=== PATIENT | female | born 1960 | race Caucasian/White ===

== ENCOUNTER 2017-04-21 12:13 | Emergency (ER) | payer OTHER ==
[~2017-04-21] VITALS: Ht 149.9 cm; Wt 76.0 kg
[~2017-04-21 12:13] MED LIST: ACEBUTOLOL200 MG OR; ALPRAZOLAM0.5 MG PO; AMOXICILLIN500 MG OR; AMOXICILLIN875 MG OR; ASPIRIN325 MG PO; BACTRIM DS1 TAB OR; COMBIVENT IN; COMBIVENT RESPIMAT IN; DECONG; DOXYCYCL HYC100 MG OR; FLEXERIL OR; IBUPROFEN400 MG OR; LORTAB 7.5 OR; MEDDOSEPAK OR; NAPROSYN500 MG OR; NEO/POLY/HC1 % OT; PERCOCET 5/325M1 TAB OR; PRAVASTATIN SOD20 MG PO; PREDNISONE20 MG OR; PREVACID30 M1 OR; PREVACID30 M1 PO; PRILOSEC20 MG PO; PRILOSEC20 MG/CAP PO; PROMETHAZINE25 MG PO; REGLAN10 MG OR; RIFADIN300 MG OR; ROBITUSSIN AC OR; SEPTRA DS1 TAB OR; TENORMIN25 MG PO; TORADOL OR; TORADOL PO; TRIMOX500 MG PO; TYLENOL500 MG OR; ULTRAM50 M1 PO; ULTRAM50 MG OR; ULTRAM50 MG PO; ZITHROMAX250 MG OR; ZITHROMAX500 MG OR; ZPAK OR
[2017-04-21] MEDS ORDERED: ADVAIR DISK1 IN (12:42)
[2017-04-21] MEDS ORDERED: PROAIR HFA108 MCG/AC IN (12:43)
[2017-04-21] MEDS ORDERED: BACTRIM DS1 TAB PO (13:03)
[2017-04-21 13:21] VITALS: BP 120/70
== END 2017-04-21 13:21 | disposition home or self-care (01) | DRG 556 ==
LOC: ED 12:13
PROC: 2W3UXYZ Immobilization of Right Toe using Other Device (ICD-10-PCS; principal; 2017-04-21)
DX: M79.674 Pain in right toe(s) (principal); F41.9 Anxiety disorder, unspecified

== ENCOUNTER 2017-05-22 14:51 | Emergency (ER) | payer OTHER ==
[~2017-05-22] VITALS: Ht 149.9 cm; Wt 71.8 kg
[~2017-05-22 14:51] MED LIST changes: +ADVAIR DISK1 IN; +BACTRIM DS1 TAB PO; +PROAIR HFA108 MCG/AC IN
[2017-05-22] MEDS ORDERED: IBUPROFEN600 MG PO (15:31)
[2017-05-22 16:05] VITALS: BP 125/63
== END 2017-05-22 16:05 | disposition home or self-care (01) | DRG 556 ==
LOC: ED 14:51
DX: M25.561 Pain in right knee (principal); M25.461 Effusion, right knee; R26.2 Difficulty in walking, not elsewhere classified

== ENCOUNTER 2017-06-20 16:48 | Emergency (ER) | payer OTHER ==
[~2017-06-20] VITALS: Ht 149.9 cm; Wt 72.2 kg
[~2017-06-20 16:48] MED LIST changes: +IBUPROFEN600 MG PO
[2017-06-20] MEDS ORDERED: XANAX0.5 MG PO (16:58)
[2017-06-20] MEDS ORDERED: MACROBID100 MG PO (16:59)
[2017-06-20 18:21] LABS: HEMATOCRIT 45.8 % (37.0-47.0); HEMOGLOBIN 15.1 g/dl (12.0-16.0); IMMATURE GRANULOCYTES 0.5 % (0.0-1.0); MEAN CELL VOLUME 93.9 fL CALC (80.0-100.0); MEAN CORPUSCULAR HGB 30.9 pG CALC (26.0-32.0); NEUT# 4.89 thou/uL (2.00-7.15); RED BLOOD COUNT 4.88 mill/uL (4.20-5.60)
[2017-06-20 18:32] LABS: ALKALINE PHOSPHATASE 81 u/l (38-126); ANION GAP 15 (6-22 (CALC)); BILIRUBIN, TOTAL 0.4 mg/dL (0.0-1.4); BUN 9 mg/dL (7-17); BUN/CREATININE RATIO 15 (12-20 (CALC)); CALCIUM 9.5 mg/dL (8.4-10.2); CARBON DIOXIDE 27 mmol/l (22-30); CHLORIDE 102 mmol/l (95-108); CREATININE 0.6 mg/dL (0.5-1.0); GFR > 60 ML/MIN (>=60 (CALC)); GFR FOR AFR.AMER. > 60 ML/MIN (>=60 (CALC)); GLUCOSE 127 mg/dL (65-105); POTASSIUM 4.2 mmol/l (3.5-5.1); SGOT/AST 22 u/l (14-36); SGPT/ALT 34 u/l (9-52); SODIUM 140 mmol/l (137-146); TOTAL PROTEIN 6.4 g/dL (6.3-8.2)
[2017-06-20 18:44] LABS: MYOGLOBIN 30 ng/mL (0 - 62)
[2017-06-20 19:07] LABS: URINE BILIRUBIN - DIPSTICK NEGATIVE (NEGATIVE); URINE BLOOD DIPSTICK NEGATIVE (NEGATIVE); URINE CLARITY CLEAR; URINE COLOR YELLOW; URINE GLUCOSE - DIPSTICK NEGATIVE (NEGATIVE); URINE KETONE NEGATIVE (NEGATIVE); URINE LEUK ESTERASE NEGATIVE (NEGATIVE); URINE NITRITE - DIPSTICK NEGATIVE (Negative); URINE PH 5.5 (4.5-8.0); URINE PROTEIN - DIPSTICK NEGATIVE (NEG-TRACE); URINE SPECIFIC GRAVITY 1.025; URINE UROBILINOGEN - DIPSTICK 0.2 E.U./dL (0.2)
[2017-06-20 19:55] VITALS: BP 104/59
== END 2017-06-20 19:55 | disposition home or self-care (01) | DRG 310 ==
LOC: ED 16:48
PROVIDERS: Emergency Medicine
DX: R00.2 Palpitations (principal); F41.8 Other specified anxiety disorders; R00.0 Tachycardia, unspecified; F17.210 Nicotine dependence, cigarettes, uncomplicated

== ENCOUNTER 2017-10-06 12:55 | Emergency (ER) | payer OTHER ==
[~2017-10-06] VITALS: Ht 149.9 cm; Wt 72.0 kg
[~2017-10-06 12:55] MED LIST changes: +MACROBID100 MG PO; +XANAX0.5 MG PO
[2017-10-06] MEDS ORDERED: DUONEB IN (13:17)
[2017-10-06] MEDS ORDERED: ZITHROMAX250 MG PO (13:27)
[2017-10-06] MEDS ORDERED: PREDNISONE50 MG PO (13:27)
[2017-10-06 14:02] VITALS: BP 95/63
== END 2017-10-06 14:10 | disposition home or self-care (01) | DRG 202 ==
LOC: ED 12:55
DX: J20.9 Acute bronchitis, unspecified (principal); J44.1 Chronic obstructive pulmonary disease with (acute) exacerbation; J44.0 Chronic obstructive pulmonary disease with (acute) lower respiratory infection; F17.210 Nicotine dependence, cigarettes, uncomplicated; R05 Cough; R06.02 Shortness of breath; R00.0 Tachycardia, unspecified

== ENCOUNTER 2017-10-21 13:40 | Inpatient (IN) | payer OTHER ==
[2017-10-21] VITALS (9 sets, daily range): BP systolic 73–133; BP diastolic 45–75
[~2017-10-21] VITALS: Ht 149.9 cm; Wt 76.0 kg
[~2017-10-21 13:40] MED LIST changes: +DUONEB IN; +PREDNISONE50 MG PO; +ZITHROMAX250 MG PO
[2017-10-21 15:15] LABS: HEMATOCRIT 45.2 % (37.0-47.0); HEMOGLOBIN 14.4 g/dl (12.0-16.0); IMMATURE GRANULOCYTES 0.7 % (0.0-1.0); MEAN CELL VOLUME 95.2 fL CALC (80.0-100.0); MEAN CORPUSCULAR HGB 30.3 pG CALC (26.0-32.0); MEAN CORPUSCULAR HGB CONC 31.9 g/L CALC (32.0-36.0); NEUT# 7.27 thou/uL (2.00-7.15); RED BLOOD COUNT 4.75 mill/uL (4.20-5.60); RED CELL DISTRI WIDTH 13.2 % (11.5-15.5)
[2017-10-21 15:16] LABS: URINE BILIRUBIN - DIPSTICK NEGATIVE (NEGATIVE); URINE BLOOD DIPSTICK NEGATIVE (NEGATIVE); URINE COLOR YELLOW; URINE GLUCOSE - DIPSTICK NEGATIVE (NEGATIVE); URINE KETONE NEGATIVE (NEGATIVE); URINE LEUK ESTERASE NEGATIVE (NEGATIVE); URINE NITRITE - DIPSTICK NEGATIVE (Negative); URINE PROTEIN - DIPSTICK NEGATIVE (NEG-TRACE); URINE UROBILINOGEN - DIPSTICK 0.2 E.U./dL (0.2)
[2017-10-21 15:17] LABS: URINE CLARITY CLEAR
[2017-10-21 15:34] LABS: ANION GAP 13 (6-22 (CALC)); BUN 15 mg/dL (7-17); BUN/CREATININE RATIO 23 (12-20 (CALC)); CARBON DIOXIDE 28 mmol/l (22-30); CHLORIDE 105 mmol/l (95-108); CREATININE 0.6 mg/dL (0.5-1.0); GFR > 60 ML/MIN (>=60 (CALC)); GFR FOR AFR.AMER. > 60 ML/MIN (>=60 (CALC)); POTASSIUM 4.3 mmol/l (3.5-5.1); SODIUM 142 mmol/l (137-146)
[2017-10-22] VITALS (12 sets, daily range): BP systolic 92–148; BP diastolic 44–95
[2017-10-22 05:13] LABS: HEMATOCRIT 44.1 % (37.0-47.0); MEAN CELL VOLUME 95.2 fL CALC (80.0-100.0); MEAN CORPUSCULAR HGB 30.2 pG CALC (26.0-32.0); MEAN CORPUSCULAR HGB CONC 31.7 g/L CALC (32.0-36.0); RED BLOOD COUNT 4.63 mill/uL (4.20-5.60); RED CELL DISTRI WIDTH 13.2 % (11.5-15.5)
[2017-10-22 05:25] LABS: ANION GAP 12 (6-22 (CALC)); BUN 13 mg/dL (7-17); BUN/CREATININE RATIO 20 (12-20 (CALC)); CALCULATED LDLCHOLESTEROL 141 mg/dL (62-129 (CALC)); CARBON DIOXIDE 28 mmol/l (22-30); CHLORIDE 108 mmol/l (95-108); CHOLESTEROL HDL RATIO 4.4 (<4.4 (CALC)); CREATININE 0.6 mg/dL (0.5-1.0); GFR > 60 ML/MIN (>=60 (CALC)); GFR FOR AFR.AMER. > 60 ML/MIN (>=60 (CALC)); HDL CHOLESTEROL 46 mg/dL (>=40); MAGNESIUM 1.9 mg/dL (1.6-2.3); POTASSIUM 4.6 mmol/l (3.5-5.1); SODIUM 144 mmol/l (137-146); TOTAL CHOLESTEROL 202 mg/dl (0-199); TOTAL TRIGLYCERIDES 76 mg/dl (30-149); VLDL CHOLESTROL 15 mg/dl (2-49 (CALC))
[2017-10-23] VITALS (9 sets, daily range): BP systolic 90–123; BP diastolic 50–73
== END 2017-10-23 16:10 | disposition short-term general hospital (02) | DRG 310 ==
LOC: ED 13:40 → ED-I 16:42 → ED 16:51 → MS2 16:52 → ICU 19:41 → MS2 19:41 → ICU 19:55
PROVIDERS: Family Medicine; ADMIT Internal Medicine; ATTEND Internal Medicine
DX: I47.2 Ventricular tachycardia (principal); M41.9 Scoliosis, unspecified; I49.3 Ventricular premature depolarization; F17.210 Nicotine dependence, cigarettes, uncomplicated; J44.9 Chronic obstructive pulmonary disease, unspecified; M47.819 Spondylosis without myelopathy or radiculopathy, site unspecified; E66.9 Obesity, unspecified; Z87.442 Personal history of urinary calculi; Z68.33 Body mass index [BMI] 33.0-33.9, adult

== ENCOUNTER 2017-10-25 23:24 | Emergency (ER) | payer OTHER ==
[~2017-10-25] VITALS: Ht 149.9 cm; Wt 75.0 kg
[2017-10-26 00:19] LABS: HEMATOCRIT 47.1 % (37.0-47.0); HEMOGLOBIN 15.5 g/dl (12.0-16.0); IMMATURE GRANULOCYTES 0.6 % (0.0-1.0); MEAN CELL VOLUME 93.1 fL CALC (80.0-100.0); MEAN CORPUSCULAR HGB 30.6 pG CALC (26.0-32.0); MEAN CORPUSCULAR HGB CONC 32.9 g/L CALC (32.0-36.0); NEUT# 3.6 thou/uL (2.00-7.15); RED BLOOD COUNT 5.06 mill/uL (4.20-5.60); RED CELL DISTRI WIDTH 12.7 % (11.5-15.5)
[2017-10-26 00:40] LABS: ACT PARTIAL THROMBO TIME 25.7 SECONDS (20.0-32.5); INTERNATIONAL NORMALIZED RATIO 0.9 RATIO (0.7-1.3); PROTHROMBIN TIME 10.5 SECONDS (9.0-12.5)
[2017-10-26 00:48] LABS: ALBUMIN 3.9 g/dL (3.2-5.0); ALKALINE PHOSPHATASE 90 u/l (38-126); ANION GAP 14 (6-22 (CALC)); BILIRUBIN, TOTAL 0.4 mg/dL (0.0-1.4); BUN 11 mg/dL (7-17); BUN/CREATININE RATIO 17 (12-20 (CALC)); CARBON DIOXIDE 24 mmol/l (22-30); CHLORIDE 105 mmol/l (95-108); CREATININE 0.6 mg/dL (0.5-1.0); GFR > 60 ML/MIN (>=60 (CALC)); GFR FOR AFR.AMER. > 60 ML/MIN (>=60 (CALC)); POTASSIUM 3.8 mmol/l (3.5-5.1); SGOT/AST 34 u/l (14-36); SGPT/ALT 27 u/l (9-52); SODIUM 140 mmol/l (137-146); TOTAL PROTEIN 6.9 g/dL (6.3-8.2)
[2017-10-26 00:57] LABS: MYOGLOBIN 39 ng/mL (0 - 62)
[2017-10-26] MEDS ORDERED: METOPROLOL SUCC25 MG PO (01:22)
[2017-10-26 01:25] LABS: URINE BILIRUBIN - DIPSTICK NEGATIVE (NEGATIVE); URINE BLOOD DIPSTICK NEGATIVE (NEGATIVE); URINE CLARITY CLEAR; URINE COLOR YELLOW; URINE GLUCOSE - DIPSTICK NEGATIVE (NEGATIVE); URINE KETONE NEGATIVE (NEGATIVE); URINE LEUK ESTERASE NEGATIVE (NEGATIVE); URINE NITRITE - DIPSTICK NEGATIVE (Negative); URINE PROTEIN - DIPSTICK NEGATIVE (NEG-TRACE); URINE SPECIFIC GRAVITY <=1.005; URINE UROBILINOGEN - DIPSTICK 0.2 E.U./dL (0.2)
[2017-10-26 03:13] VITALS: BP 112/65
== END 2017-10-26 03:12 | disposition short-term general hospital (02) | DRG 310 ==
LOC: ED 23:24
PROVIDERS: Emergency Medicine
DX: I47.2 Ventricular tachycardia (principal); J98.4 Other disorders of lung; I51.9 Heart disease, unspecified; N28.9 Disorder of kidney and ureter, unspecified; F17.210 Nicotine dependence, cigarettes, uncomplicated
CPT/HCPCS: J0282

== ENCOUNTER 2017-11-14 12:17 | Observation (INO) | payer OTHER ==
[~2017-11-14] VITALS: Ht 149.9 cm; Wt 77.6 kg
[~2017-11-14 12:17] MED LIST changes: +METOPROLOL SUCC25 MG PO
--- NOTE | 2017-11-14 12:19 | NUR ---
PT REFUSED WHEELCHAIR AND AMBULATED TO ROOM WITH A STEADY GAIT.
[2017-11-14 13:10] LABS: HEMATOCRIT 44.4 % (37.0-47.0); HEMOGLOBIN 14.4 g/dl (12.0-16.0); IMMATURE GRANULOCYTES 1.9 % (0.0-1.0); MEAN CELL VOLUME 93.1 fL CALC (80.0-100.0); MEAN CORPUSCULAR HGB 30.2 pG CALC (26.0-32.0); MEAN CORPUSCULAR HGB CONC 32.4 g/L CALC (32.0-36.0); NEUT# 5.66 thou/uL (2.00-7.15); RED BLOOD COUNT 4.77 mill/uL (4.20-5.60); RED CELL DISTRI WIDTH 12.7 % (11.5-15.5)
[2017-11-14 13:23] LABS: ANION GAP 18 (6-22 (CALC)); BUN 9 mg/dL (7-17); BUN/CREATININE RATIO 13 (12-20 (CALC)); CARBON DIOXIDE 26 mmol/l (22-30); CHLORIDE 102 mmol/l (95-108); CREATININE 0.7 mg/dL (0.5-1.0); GFR > 60 ML/MIN (>=60 (CALC)); GFR FOR AFR.AMER. > 60 ML/MIN (>=60 (CALC)); POTASSIUM 3.9 mmol/l (3.5-5.1); SODIUM 142 mmol/l (137-146)
--- NOTE | 2017-11-14 13:30 | NUR ---
MD AT BEDSIDE TO DISCUSS RESULTS.
--- NOTE | 2017-11-14 14:01 | NUR ---
PATIENT ALERT AND ORIENTED, REPORTS "LESS THAN MILD CHEST DISCOMFORT" DENIES ANY ACTIVE CHEST PAIN, NAUSEA, VOMITING OR DIZZINESS. UPDATED ON PLAN OF CARE VERBAL UNDERSTANDING, DENIES ANY QUESTIONS.
--- NOTE | 2017-11-14 15:20 | NUR ---
SNACK PROVIDED PER PATIENT REQUEST.
--- NOTE | 2017-11-14 15:34 | NUR ---
REPORT GIVEN TO DAVE LLANES.
--- NOTE | 2017-11-14 15:42 | NUR ---
TRANSPORTED TO [facility] WITH TELE IN PLACE VIA WHEELCHAIR. REPORT GIVEN TO DAVE LLANES. CARE RELINQUISHED.
--- NOTE | 2017-11-14 16:05 | NUR ---
PT ARRIVED FROM ER VIA AT [id number]. ASSESSMENT IS COMPLETED: IV SITE IS FREE FROM REDNESS OR EDEMA. HR IS REG, PULSES ARE STRONG X4,ABD IS SOFT WITH ACTIVE BS . TELE MONITOR IN PLACE. CONTINUE TO OSBERVE AND MONITOR.
[2017-11-14 16:28] VITALS: BP 121/68
--- NOTE | 2017-11-14 16:30 | NUR ---
PT IS RELAXING IN BED WITH NO DISTRESS NOTED. IV SITE IS FREE FROM REDNESS OR EDEMA. CONTINUE TO OSBERVE AND MONITOR.
--- NOTE | 2017-11-14 18:00 | NUR ---
PT IS RELAXING IN BED WITH NO DISTRESS NOTED. IV SITE IS FREE FROM REDNESS OR EDEMA.CONTINUE TO OBSERVE AND MONITOR.
[2017-11-14 19:16] VITALS: BP 117/75
--- NOTE | 2017-11-14 20:00 | NUR ---
PT.IS IN BED WATCHING TV. DENIES ANY PAIN OR DISCOMFORT AT THIS TIME. NO S/S OF DISTRESS AND PT.DENIES ANY NEEDS. CALL LIGHT IS W/IN REACH AND PT.IS ENCOURAGED TO CALL NEEDS ARISE.
--- NOTE | 2017-11-14 22:05 | NUR ---
PT.IS AWAKE AND ASKING FOR FOOD/SANDWICH AND DRINK PROVIDED. PT.DENIES ANY PAIN OR DISTRESS AND HAS BEEN SLEEPING MOST OF THE EVENING. PT.ASSESSED, LUNG SOUNDS ARE CLEAR, NO EDEMA OR WOUNDS NOTED, SKIN IS INTACT, NEURO'S INTACT. NO OTHER S/S OF DISTRESS NOTED AT THIS TIME. PT.DENIES ANY OTHER NEEDS AND SHE HAS BEEN ENCOURAGED TO CALL IF ANY NEEDS ARISE OR IF SHE EXPERIENCEAS ANY PAIN OR DISTRESS. CALL LIGHT IS W/IN REACH.
--- NOTE | 2017-11-15 00:10 | NUR ---
LAB WAS IN TO SEE PT. PT.DENIES ANY PAIN AT THIS TIME. NO S/S OF DISTRESS. PT.IS IN BED W/LIGHTS BACK OFF AND DENIES ANY OTHER NEEDS AT THIS TIME. CALL LIGHT IS W/IN REACH AND BED IN LOWEST POSITION.
[2017-11-15 00:22] VITALS: BP 91/59
--- NOTE | 2017-11-15 03:20 | NUR ---
PT.IS SLEEPING AT THIS TIME, NO S/S OF DISTRESS. CALL LIGHT AT SIDE
[2017-11-15 08:20] VITALS: BP 111/76
--- NOTE | 2017-11-15 08:20 | NUR ---
ASSESSMENT IS COMPLETED: IV SITE IS FREE FROM REDNESS OR EDEMA. HR IS REG,PULSES ARE STRONG X4, ABD IS SOFT WITH ACTIVE BS. TELE MONITOR IN PLACE. CONTINUE TO OSBERVE AND MONITOR.
[2017-11-15 11:09] VITALS: BP 115/71
--- NOTE | 2017-11-15 12:16 | NUR ---
JUST GAVE PT DISCHARGE INSTRUCTIONS AND VERBALIZED UNDERSTANDING IV SITE DISCONTINUED CATHETER INTACT. NO REDNESS OR EDEMA.
--- NOTE | 2017-11-15 12:30 | NUR ---
IV SITE DISCONTINUED CATHETER INTACT, NO REDNESS OR EDEMA. CONITNUE TO OBSERVE AND MONITOR.
== END 2017-11-15 12:24 | disposition home or self-care (01) | DRG 313 ==
LOC: ED 12:17 → ED-I 13:47 → ED 14:00 → MS2 14:01
PROVIDERS: Family Medicine; ADMIT Hospitalist; ATTEND Hospitalist
DX: R07.9 Chest pain, unspecified (principal); F41.9 Anxiety disorder, unspecified; R00.0 Tachycardia, unspecified; M41.9 Scoliosis, unspecified; J44.9 Chronic obstructive pulmonary disease, unspecified; M47.819 Spondylosis without myelopathy or radiculopathy, site unspecified; F17.210 Nicotine dependence, cigarettes, uncomplicated; K44.9 Diaphragmatic hernia without obstruction or gangrene; Z87.442 Personal history of urinary calculi
CPT/HCPCS: G0378

== ENCOUNTER 2018-02-13 01:34 | Emergency (ER) | payer OTHER ==
[~2018-02-13] VITALS: Ht 149.9 cm; Wt 86.4 kg
[2018-02-13] MEDS ORDERED: OMEPRAZOLE10 MG PO (01:43)
[2018-02-13] MEDS ORDERED: TENORMIN25 M1 PO (01:44)
[2018-02-13 02:31] LABS: HEMATOCRIT 42.1 % (37.0-47.0); HEMOGLOBIN 13.4 g/dl (12.0-16.0); IMMATURE GRANULOCYTES 0.5 % (0.0-1.0); MEAN CELL VOLUME 91.5 fL CALC (80.0-100.0); MEAN CORPUSCULAR HGB 29.1 pG CALC (26.0-32.0); MEAN CORPUSCULAR HGB CONC 31.8 g/L CALC (32.0-36.0); NEUT# 9.57 thou/uL (2.00-7.15); RED BLOOD COUNT 4.6 mill/uL (4.20-5.60); RED CELL DISTRI WIDTH 13.4 % (11.5-15.5)
[2018-02-13 02:31] LABS: URINE BILIRUBIN - DIPSTICK NEGATIVE (NEGATIVE); URINE BLOOD DIPSTICK NEGATIVE (NEGATIVE); URINE COLOR YELLOW; URINE GLUCOSE - DIPSTICK NEGATIVE (NEGATIVE); URINE KETONE NEGATIVE (NEGATIVE); URINE LEUK ESTERASE NEGATIVE (NEGATIVE); URINE NITRITE - DIPSTICK NEGATIVE (Negative); URINE PH 7.5 (4.5-8.0); URINE PROTEIN - DIPSTICK NEGATIVE (NEG-TRACE); URINE SPECIFIC GRAVITY <=1.005; URINE UROBILINOGEN - DIPSTICK 0.2 E.U./dL (0.2)
[2018-02-13 02:32] LABS: URINE CLARITY CLEAR
[2018-02-13 02:39] LABS: ALBUMIN 3.7 g/dL (3.2-5.0); ALKALINE PHOSPHATASE 75 u/l (38-126); AMYLASE 45 u/l (30-110); ANION GAP 9 (6-22 (CALC)); BILIRUBIN, TOTAL 0.3 mg/dL (0.0-1.4); BUN 11 mg/dL (7-17); BUN/CREATININE RATIO 19 (12-20 (CALC)); CARBON DIOXIDE 30 mmol/l (22-30); CHLORIDE 104 mmol/l (95-108); CREATININE 0.6 mg/dL (0.5-1.0); GFR > 60 ML/MIN (>=60 (CALC)); GFR FOR AFR.AMER. > 60 ML/MIN (>=60 (CALC)); LIPASE 58 u/l (23-300); POTASSIUM 4.5 mmol/l (3.5-5.1); SGOT/AST 29 u/l (14-36); SGPT/ALT 43 u/l (9-52); SODIUM 139 mmol/l (137-146); TOTAL PROTEIN 6.7 g/dL (6.3-8.2)
[2018-02-13] MEDS ORDERED: IBUPROFEN600 MG PO (03:34)
[2018-02-13] MEDS ORDERED: ORPHENADRINE100 MG PO (03:34)
[2018-02-13 03:45] VITALS: BP 140/80
== END 2018-02-13 03:45 | disposition home or self-care (01) | DRG 392 ==
LOC: ED 01:34
PROVIDERS: Emergency Medicine
DX: R10.12 Left upper quadrant pain (principal); M19.90 Unspecified osteoarthritis, unspecified site; J44.9 Chronic obstructive pulmonary disease, unspecified

== ENCOUNTER 2018-02-21 19:54 | Emergency (ER) | payer OTHER ==
[~2018-02-21] VITALS: Ht 149.9 cm; Wt 84.0 kg
[~2018-02-21 19:54] MED LIST changes: +OMEPRAZOLE10 MG PO; +ORPHENADRINE100 MG PO; +TENORMIN25 M1 PO
[2018-02-21] MEDS ORDERED: ATROVENT H17 MCG/ACT PO (20:11)
[2018-02-21 20:30] LABS: HEMATOCRIT 43.8 % (37.0-47.0); HEMOGLOBIN 13.9 g/dl (12.0-16.0); IMMATURE GRANULOCYTES 0.6 % (0.0-1.0); MEAN CELL VOLUME 91.3 fL CALC (80.0-100.0); MEAN CORPUSCULAR HGB CONC 31.7 g/L CALC (32.0-36.0); NEUT# 5.19 thou/uL (2.00-7.15); RED BLOOD COUNT 4.8 mill/uL (4.20-5.60); RED CELL DISTRI WIDTH 13.3 % (11.5-15.5)
[2018-02-21 20:45] LABS: ALBUMIN 4.1 g/dL (3.2-5.0); ALKALINE PHOSPHATASE 78 u/l (38-126); ANION GAP 16 (6-22 (CALC)); BILIRUBIN, TOTAL 0.3 mg/dL (0.0-1.4); BUN 11 mg/dL (7-17); BUN/CREATININE RATIO 16 (12-20 (CALC)); CARBON DIOXIDE 27 mmol/l (22-30); CHLORIDE 101 mmol/l (95-108); CREATININE 0.7 mg/dL (0.5-1.0); GFR > 60 ML/MIN (>=60 (CALC)); GFR FOR AFR.AMER. > 60 ML/MIN (>=60 (CALC)); SGOT/AST 28 u/l (14-36); SGPT/ALT 45 u/l (9-52); SODIUM 141 mmol/l (137-146); TOTAL PROTEIN 7.4 g/dL (6.3-8.2)
[2018-02-21 20:56] LABS: MYOGLOBIN 29 ng/mL (0 - 62)
[2018-02-21 21:15] LABS: URINE BILIRUBIN - DIPSTICK NEGATIVE (NEGATIVE); URINE BLOOD DIPSTICK NEGATIVE (NEGATIVE); URINE COLOR YELLOW; URINE GLUCOSE - DIPSTICK NEGATIVE (NEGATIVE); URINE KETONE NEGATIVE (NEGATIVE); URINE LEUK ESTERASE NEGATIVE (NEGATIVE); URINE NITRITE - DIPSTICK NEGATIVE (Negative); URINE PROTEIN - DIPSTICK NEGATIVE (NEG-TRACE); URINE SPECIFIC GRAVITY <=1.005; URINE UROBILINOGEN - DIPSTICK 0.2 E.U./dL (0.2)
[2018-02-21 21:16] LABS: URINE CLARITY CLEAR
[2018-02-21 21:40] VITALS: BP 107/58
== END 2018-02-21 21:47 | disposition home or self-care (01) ==
LOC: ED 19:54
PROVIDERS: Family Medicine
DX: R55 Syncope and collapse (principal); J44.9 Chronic obstructive pulmonary disease, unspecified; R42 Dizziness and giddiness; R19.7 Diarrhea, unspecified; R00.0 Tachycardia, unspecified

== ENCOUNTER 2018-04-04 23:26 | Emergency (ER) | payer OTHER ==
[~2018-04-04] VITALS: Ht 149.9 cm; Wt 90.9 kg
[~2018-04-04 23:26] MED LIST changes: +ATROVENT H17 MCG/ACT PO
[2018-04-05 00:17] LABS: HEMATOCRIT 43.3 % (37.0-47.0); HEMOGLOBIN 14.1 g/dl (12.0-16.0); IMMATURE GRANULOCYTES 0.5 % (0.0-5.0); MEAN CELL VOLUME 89.6 fL CALC (80.0-100.0); MEAN CORPUSCULAR HGB 29.2 pG CALC (26.0-32.0); MEAN CORPUSCULAR HGB CONC 32.6 g/L CALC (32.0-36.0); NEUT# 5.17 thou/uL (2.00-7.15); RED BLOOD COUNT 4.83 mill/uL (4.20-5.60); RED CELL DISTRI WIDTH 13.4 % (11.5-15.5)
[2018-04-05 00:47] LABS: ALKALINE PHOSPHATASE 90 u/l (38-126); AMYLASE 64 u/l (30-110); ANION GAP 14 (6-22 (CALC)); BILIRUBIN, TOTAL 0.2 mg/dL (0.0-1.4); BUN 9 mg/dL (7-17); BUN/CREATININE RATIO 13 (12-20 (CALC)); CARBON DIOXIDE 27 mmol/l (22-30); CHLORIDE 104 mmol/l (95-108); CREATININE 0.7 mg/dL (0.5-1.0); GFR > 60 ML/MIN (>=60 (CALC)); GFR FOR AFR.AMER. > 60 ML/MIN (>=60 (CALC)); LIPASE 98 u/l (23-300); POTASSIUM 3.8 mmol/l (3.5-5.1); SGOT/AST 44 u/l (14-36); SGPT/ALT 40 u/l (9-52); SODIUM 141 mmol/l (137-146); TOTAL PROTEIN 7.1 g/dL (6.3-8.2)
[2018-04-05 00:59] LABS: MYOGLOBIN 20 ng/mL (0 - 62)
[2018-04-05] MEDS ORDERED: PRILOSEC20 MG PO (01:18)
[2018-04-05 01:31] VITALS: BP 102/68
== END 2018-04-05 01:45 | disposition home or self-care (01) ==
LOC: ED 23:26
PROVIDERS: Family Medicine
DX: K21.9 Gastro-esophageal reflux disease without esophagitis (principal); F41.1 Generalized anxiety disorder; R10.13 Epigastric pain; F17.210 Nicotine dependence, cigarettes, uncomplicated; R06.02 Shortness of breath; R07.89 Other chest pain
CPT/HCPCS: J2060

== ENCOUNTER 2018-04-08 04:16 | Emergency (ER) | payer OTHER ==
[~2018-04-08] VITALS: Ht 149.9 cm; Wt 86.2 kg
[2018-04-08 04:56] LABS: HEMATOCRIT 43.3 % (37.0-47.0); HEMOGLOBIN 13.9 g/dl (12.0-16.0); IMMATURE GRANULOCYTES 0.5 % (0.0-5.0); MEAN CELL VOLUME 90.2 fL CALC (80.0-100.0); MEAN CORPUSCULAR HGB CONC 32.1 g/L CALC (32.0-36.0); NEUT# 4.45 thou/uL (2.00-7.15); RED BLOOD COUNT 4.8 mill/uL (4.20-5.60); RED CELL DISTRI WIDTH 13.6 % (11.5-15.5)
[2018-04-08 04:59] LABS: URINE BILIRUBIN - DIPSTICK NEGATIVE (NEGATIVE); URINE BLOOD DIPSTICK NEGATIVE (NEGATIVE); URINE COLOR YELLOW; URINE GLUCOSE - DIPSTICK NEGATIVE (NEGATIVE); URINE KETONE NEGATIVE (NEGATIVE); URINE LEUK ESTERASE NEGATIVE (NEGATIVE); URINE NITRITE - DIPSTICK NEGATIVE (Negative); URINE PH 6.5 (4.5-8.0); URINE PROTEIN - DIPSTICK NEGATIVE (NEG-TRACE); URINE SPECIFIC GRAVITY <=1.005; URINE UROBILINOGEN - DIPSTICK 0.2 E.U./dL (0.2)
[2018-04-08 05:05] LABS: URINE CLARITY CLEAR
[2018-04-08 05:07] LABS: BARBITURATES NEGATIVE (NEGATIVE); COCAINE NEGATIVE (NEGATIVE); INTERNATIONAL NORMALIZED RATIO 0.9 RATIO (0.7-1.3); METHADONE NEGATIVE (NEGATIVE); OXCYCODONE NEGATIVE (NEGATIVE); PROTHROMBIN TIME 10.4 SECONDS (9.0-12.5); TETRAHYDROCANNABIONOL NEGATIVE (NEGATIVE); TRICYLIC ANTIDEPRESSANTS NEGATIVE (NEGATIVE)
[2018-04-08 05:22] LABS: ALKALINE PHOSPHATASE 89 u/l (38-126); ANION GAP 11 (6-22 (CALC)); BILIRUBIN, TOTAL 0.2 mg/dL (0.0-1.4); BUN 10 mg/dL (7-17); BUN/CREATININE RATIO 16 (12-20 (CALC)); CARBON DIOXIDE 30 mmol/l (22-30); CHLORIDE 107 mmol/l (95-108); CREATININE 0.7 mg/dL (0.5-1.0); GFR > 60 ML/MIN (>=60 (CALC)); GFR FOR AFR.AMER. > 60 ML/MIN (>=60 (CALC)); POTASSIUM 4.1 mmol/l (3.5-5.1); SGOT/AST 29 u/l (14-36); SGPT/ALT 40 u/l (9-52); SODIUM 143 mmol/l (137-146)
[2018-04-08 05:34] LABS: MYOGLOBIN 21 ng/mL (0 - 62)
[2018-04-08 06:16] VITALS: BP 132/69
== END 2018-04-08 06:20 | disposition home or self-care (01) ==
LOC: ED 04:16
PROVIDERS: Emergency Medicine
DX: R00.2 Palpitations (principal); M19.90 Unspecified osteoarthritis, unspecified site; J44.9 Chronic obstructive pulmonary disease, unspecified; F17.210 Nicotine dependence, cigarettes, uncomplicated

== ENCOUNTER 2018-06-11 00:34 | Emergency (ER) | payer OTHER ==
[~2018-06-11] VITALS: Ht 149.9 cm; Wt 86.6 kg
[2018-06-11] MEDS ORDERED: ADVAIR HF1 IN (00:48)
--- NOTE | 2018-06-11 01:17 | NUR ---
BREATHING TREATMENT GIVEN BACK TO BACK FOR SHORTNESS OF BREATH. BREATHING TECH. FOR GOOD DEPOSITION TO THE LUNGS.
[2018-06-11] MEDS ORDERED: PROAIR HFA108 MCG/AC IN (01:39)
[2018-06-11] MEDS ORDERED: PREDNISONE10 MG PO (01:39)
[2018-06-11 02:20] VITALS: BP 134/67
== END 2018-06-11 02:27 | disposition home or self-care (01) ==
LOC: ED 00:34
DX: J44.1 Chronic obstructive pulmonary disease with (acute) exacerbation (principal); F17.200 Nicotine dependence, unspecified, uncomplicated; R05 Cough; R06.02 Shortness of breath; R06.2 Wheezing

== ENCOUNTER 2018-06-17 19:07 | Emergency (ER) | payer OTHER ==
[~2018-06-17] VITALS: Ht 149.9 cm; Wt 87.0 kg
[~2018-06-17 19:07] MED LIST changes: +ADVAIR HF1 IN; +PREDNISONE10 MG PO
[2018-06-17 19:40] LABS: URINE BILIRUBIN - DIPSTICK NEGATIVE (NEGATIVE); URINE BLOOD DIPSTICK NEGATIVE (NEGATIVE); URINE CLARITY CLEAR; URINE COLOR YELLOW; URINE GLUCOSE - DIPSTICK NEGATIVE (NEGATIVE); URINE KETONE NEGATIVE (NEGATIVE); URINE LEUK ESTERASE NEGATIVE (NEGATIVE); URINE NITRITE - DIPSTICK NEGATIVE (Negative); URINE PROTEIN - DIPSTICK NEGATIVE (NEG-TRACE); URINE UROBILINOGEN - DIPSTICK 0.2 E.U./dL (0.2)
[2018-06-17 20:04] LABS: HEMATOCRIT 44.9 % (37.0-47.0); HEMOGLOBIN 14.3 g/dl (12.0-16.0); MEAN CELL VOLUME 90.9 fL CALC (80.0-100.0); MEAN CORPUSCULAR HGB 28.9 pG CALC (26.0-32.0); MEAN CORPUSCULAR HGB CONC 31.8 g/L CALC (32.0-36.0); NEUT# 8.56 thou/uL (2.00-7.15); RED BLOOD COUNT 4.94 mill/uL (4.20-5.60); RED CELL DISTRI WIDTH 14.4 % (11.5-15.5)
[2018-06-17 20:17] LABS: ALBUMIN 3.6 g/dL (3.2-5.0); ALKALINE PHOSPHATASE 82 u/l (38-126); ANION GAP 11 (6-22 (CALC)); BILIRUBIN, TOTAL 0.3 mg/dL (0.0-1.4); BUN 10 mg/dL (7-17); BUN/CREATININE RATIO 16 (12-20 (CALC)); CARBON DIOXIDE 27 mmol/l (22-30); CHLORIDE 104 mmol/l (95-108); CREATININE 0.6 mg/dL (0.5-1.0); GFR > 60 ML/MIN (>=60 (CALC)); GFR FOR AFR.AMER. > 60 ML/MIN (>=60 (CALC)); POTASSIUM 4.1 mmol/l (3.5-5.1); SGOT/AST 28 u/l (14-36); SODIUM 138 mmol/l (137-146); TOTAL PROTEIN 6.2 g/dL (6.3-8.2)
[2018-06-17 20:28] LABS: MYOGLOBIN 23 ng/mL (0 - 62)
[2018-06-17 21:18] VITALS: BP 148/80
== END 2018-06-17 21:18 | disposition home or self-care (01) ==
LOC: ED 19:07
PROVIDERS: Emergency Medicine
DX: F41.9 Anxiety disorder, unspecified (principal); R00.0 Tachycardia, unspecified; I25.10 Atherosclerotic heart disease of native coronary artery without angina pectoris; F17.210 Nicotine dependence, cigarettes, uncomplicated; R42 Dizziness and giddiness; R53.1 Weakness

== ENCOUNTER 2018-07-03 10:57 | Emergency (ER) | payer OTHER ==
[~2018-07-03] VITALS: Ht 149.9 cm; Wt 87.3 kg
[2018-07-03 12:05] LABS: HEMOGLOBIN 13.9 g/dl (12.0-16.0); IMMATURE GRANULOCYTES 0.6 % (0.0-5.0); MEAN CELL VOLUME 91.3 fL CALC (80.0-100.0); MEAN CORPUSCULAR HGB 29.5 pG CALC (26.0-32.0); MEAN CORPUSCULAR HGB CONC 32.3 g/L CALC (32.0-36.0); NEUT# 4.59 thou/uL (2.00-7.15); RED BLOOD COUNT 4.71 mill/uL (4.20-5.60); RED CELL DISTRI WIDTH 14.4 % (11.5-15.5)
[2018-07-03 12:19] LABS: ALBUMIN 3.6 g/dL (3.2-5.0); ALKALINE PHOSPHATASE 75 u/l (38-126); ANION GAP 10 (6-22 (CALC)); BILIRUBIN, TOTAL 0.2 mg/dL (0.0-1.4); BUN 10 mg/dL (7-17); BUN/CREATININE RATIO 17 (12-20 (CALC)); CARBON DIOXIDE 30 mmol/l (22-30); CHLORIDE 104 mmol/l (95-108); CREATININE 0.6 mg/dL (0.5-1.0); GFR > 60 ML/MIN (>=60 (CALC)); GFR FOR AFR.AMER. > 60 ML/MIN (>=60 (CALC)); POTASSIUM 3.9 mmol/l (3.5-5.1); SGOT/AST 22 u/l (14-36); SODIUM 139 mmol/l (137-146); TOTAL PROTEIN 6.6 g/dL (6.3-8.2)
[2018-07-03 12:27] LABS: INFLUENZA A NONE DETECTED (NONE DETECT); INFLUENZA B NONE DETECTED (NONE DETECT)
[2018-07-03] MEDS ORDERED: MEDDOSEPAK PO (12:39)
[2018-07-03] MEDS ORDERED: ZITHROMAX250 MG PO (12:39)
[2018-07-03 12:46] VITALS: BP 131/89
== END 2018-07-03 12:53 | disposition home or self-care (01) ==
LOC: ED 10:57
PROVIDERS: Emergency Medicine
DX: J06.9 Acute upper respiratory infection, unspecified (principal); R06.02 Shortness of breath; R05 Cough; F17.200 Nicotine dependence, unspecified, uncomplicated; J44.9 Chronic obstructive pulmonary disease, unspecified

== ENCOUNTER 2018-07-16 17:12 | Emergency (ER) | payer OTHER ==
[~2018-07-16] VITALS: Ht 149.9 cm; Wt 85.9 kg
[~2018-07-16 17:12] MED LIST changes: +MEDDOSEPAK PO
[2018-07-16] MEDS ORDERED: ASPIRIN EC325 MG PO (18:15)
[2018-07-16] MEDS ORDERED: XANAX1 MG PO (18:15)
[2018-07-16] MEDS ORDERED: SINGULAIR10 MG PO (18:17)
[2018-07-16] MEDS ORDERED: PROAIR HFA108 MCG/AC PO (18:18)
[2018-07-16 18:21] LABS: HEMATOCRIT 47.3 % (37.0-47.0); HEMOGLOBIN 15.1 g/dl (12.0-16.0); IMMATURE GRANULOCYTES 0.7 % (0.0-5.0); MEAN CELL VOLUME 92.7 fL CALC (80.0-100.0); MEAN CORPUSCULAR HGB 29.6 pG CALC (26.0-32.0); MEAN CORPUSCULAR HGB CONC 31.9 g/L CALC (32.0-36.0); NEUT# 4.97 thou/uL (2.00-7.15); RED BLOOD COUNT 5.1 mill/uL (4.20-5.60); RED CELL DISTRI WIDTH 14.3 % (11.5-15.5)
[2018-07-16 18:21] LABS: URINE BILIRUBIN - DIPSTICK NEGATIVE (NEGATIVE); URINE BLOOD DIPSTICK NEGATIVE (NEGATIVE); URINE COLOR YELLOW; URINE GLUCOSE - DIPSTICK NEGATIVE (NEGATIVE); URINE KETONE NEGATIVE (NEGATIVE); URINE LEUK ESTERASE NEGATIVE (NEGATIVE); URINE NITRITE - DIPSTICK NEGATIVE (Negative); URINE PROTEIN - DIPSTICK NEGATIVE (NEG-TRACE); URINE UROBILINOGEN - DIPSTICK 0.2 E.U./dL (0.2)
[2018-07-16 18:26] LABS: URINE CLARITY CLEAR
[2018-07-16 18:35] LABS: ALBUMIN 3.7 g/dL (3.2-5.0); ALKALINE PHOSPHATASE 94 u/l (38-126); ANION GAP 10 (6-22 (CALC)); BILIRUBIN, TOTAL 0.3 mg/dL (0.0-1.4); BUN 7 mg/dL (7-17); BUN/CREATININE RATIO 12 (12-20 (CALC)); CARBON DIOXIDE 29 mmol/l (22-30); CHLORIDE 105 mmol/l (95-108); CREATININE 0.6 mg/dL (0.5-1.0); GFR > 60 ML/MIN (>=60 (CALC)); GFR FOR AFR.AMER. > 60 ML/MIN (>=60 (CALC)); LIPASE 94 u/l (23-300); POTASSIUM 4.3 mmol/l (3.5-5.1); SGOT/AST 26 u/l (14-36); SODIUM 140 mmol/l (137-146); TOTAL PROTEIN 6.7 g/dL (6.3-8.2)
[2018-07-16 19:30] VITALS: BP 146/79
== END 2018-07-16 19:30 | disposition home or self-care (01) ==
LOC: ED 17:12
PROVIDERS: Family Medicine
DX: M54.6 Pain in thoracic spine (principal); M54.5 Low back pain; M41.9 Scoliosis, unspecified; N26.1 Atrophy of kidney (terminal); N20.0 Calculus of kidney; K44.9 Diaphragmatic hernia without obstruction or gangrene; R10.9 Unspecified abdominal pain

== ENCOUNTER 2018-09-05 07:58 | Emergency (ER) | payer MEDICAID ==
[~2018-09-05] VITALS: Ht 149.9 cm; Wt 90.0 kg
[~2018-09-05 07:58] MED LIST changes: +ASPIRIN EC325 MG PO; +PROAIR HFA108 MCG/AC PO; +SINGULAIR10 MG PO; +XANAX1 MG PO
[2018-09-05 09:10] LABS: HEMATOCRIT 48.2 % (37.0-47.0); HEMOGLOBIN 15.7 g/dl (12.0-16.0); IMMATURE GRANULOCYTES 0.6 % (0.0-5.0); MEAN CELL VOLUME 91.5 fL CALC (80.0-100.0); MEAN CORPUSCULAR HGB 29.8 pG CALC (26.0-32.0); MEAN CORPUSCULAR HGB CONC 32.6 g/L CALC (32.0-36.0); NEUT# 5.35 thou/uL (2.00-7.15); RED BLOOD COUNT 5.27 mill/uL (4.20-5.60); RED CELL DISTRI WIDTH 13.9 % (11.5-15.5)
[2018-09-05 09:25] LABS: ANION GAP 14 (6-22 (CALC)); BUN 7 mg/dL (7-17); BUN/CREATININE RATIO 13 (12-20 (CALC)); CARBON DIOXIDE 25 mmol/l (22-30); CHLORIDE 106 mmol/l (95-108); CREATININE 0.5 mg/dL (0.5-1.0); GFR > 60 ML/MIN (>=60 (CALC)); GFR FOR AFR.AMER. > 60 ML/MIN (>=60 (CALC)); POTASSIUM 4.9 mmol/l (3.5-5.1); SODIUM 140 mmol/l (137-146)
[2018-09-05] MEDS ORDERED: MECLIZINE25 MG PO (09:30)
[2018-09-05 09:57] VITALS: BP 114/57
== END 2018-09-05 10:05 | disposition home or self-care (01) ==
LOC: ED 07:58
PROVIDERS: Family Medicine
DX: R42 Dizziness and giddiness (principal); M19.90 Unspecified osteoarthritis, unspecified site; J44.9 Chronic obstructive pulmonary disease, unspecified; F17.200 Nicotine dependence, unspecified, uncomplicated

== ENCOUNTER 2018-09-10 23:16 | Emergency (ER) | payer MEDICAID ==
[~2018-09-10] VITALS: Ht 149.9 cm; Wt 85.0 kg
[~2018-09-10 23:16] MED LIST changes: +MECLIZINE25 MG PO
[2018-09-11 00:21] LABS: HEMATOCRIT 49.3 % (37.0-47.0); HEMOGLOBIN 15.6 g/dl (12.0-16.0); IMMATURE GRANULOCYTES 0.6 % (0.0-5.0); MEAN CELL VOLUME 91.8 fL CALC (80.0-100.0); MEAN CORPUSCULAR HGB 29.1 pG CALC (26.0-32.0); MEAN CORPUSCULAR HGB CONC 31.6 g/L CALC (32.0-36.0); NEUT# 5.62 thou/uL (2.00-7.15); RED BLOOD COUNT 5.37 mill/uL (4.20-5.60); RED CELL DISTRI WIDTH 13.6 % (11.5-15.5)
[2018-09-11 00:56] LABS: ALBUMIN 4.1 g/dL (3.2-5.0); ALKALINE PHOSPHATASE 88 u/l (38-126); ANION GAP 13 (6-22 (CALC)); BILIRUBIN, TOTAL 0.3 mg/dL (0.0-1.4); BUN 5 mg/dL (7-17); BUN/CREATININE RATIO 9 (12-20 (CALC)); CARBON DIOXIDE 28 mmol/l (22-30); CHLORIDE 103 mmol/l (95-108); CREATININE 0.6 mg/dL (0.5-1.0); GFR > 60 ML/MIN (>=60 (CALC)); GFR FOR AFR.AMER. > 60 ML/MIN (>=60 (CALC)); POTASSIUM 4.3 mmol/l (3.5-5.1); SGOT/AST 28 u/l (14-36); SODIUM 140 mmol/l (137-146); TOTAL PROTEIN 7.3 g/dL (6.3-8.2)
[2018-09-11 01:02] LABS: URINE BILIRUBIN - DIPSTICK NEGATIVE (NEGATIVE); URINE BLOOD DIPSTICK NEGATIVE (NEGATIVE); URINE COLOR YELLOW; URINE GLUCOSE - DIPSTICK NEGATIVE (NEGATIVE); URINE KETONE NEGATIVE (NEGATIVE); URINE LEUK ESTERASE NEGATIVE (NEGATIVE); URINE NITRITE - DIPSTICK NEGATIVE (Negative); URINE PROTEIN - DIPSTICK NEGATIVE (NEG-TRACE); URINE SPECIFIC GRAVITY <=1.005; URINE UROBILINOGEN - DIPSTICK 0.2 E.U./dL (0.2)
[2018-09-11 01:10] LABS: BARBITURATES NEGATIVE (NEGATIVE); COCAINE NEGATIVE (NEGATIVE); METHADONE NEGATIVE (NEGATIVE); OXCYCODONE NEGATIVE (NEGATIVE); TETRAHYDROCANNABIONOL NEGATIVE (NEGATIVE); TRICYLIC ANTIDEPRESSANTS NEGATIVE (NEGATIVE)
[2018-09-11 02:20] VITALS: BP 126/73
== END 2018-09-11 02:20 | disposition home or self-care (01) ==
LOC: ED 23:16
PROVIDERS: Emergency Medicine
DX: R42 Dizziness and giddiness (principal)